=== PATIENT | female | born 1985 | race Caucasian/White ===

== ENCOUNTER 2023-08-02 12:47 | Emergency (ER) | payer BC ==
[~2023-08-02] VITALS: Ht 175.3 cm; Wt 85.7 kg
[2023-08-02] MEDS ORDERED: JUNEL 1/20 20 M1 TAB PO (13:08)
[2023-08-02] MEDS ORDERED: ZYRTEC ALLERGY10 MG PO (13:09)
[2023-08-02 14:13] LABS: BASO # 0.01 K/mm3 (0.02-0.10); EOS # 0.01 K/mm3 (0.04-0.40); EOS % 0.1 % (1.0-5.0); HEMATOCRIT 37.4 % (37.0-47.0); HEMOGLOBIN 12.8 g/dL (12.5-16.0); LYMPH# 1.57 K/mm3 (1.50-4.00); MEAN CELL VOLUME 93 fl (78-100); MEAN CORPUSCULAR HEMOGLOBIN 32 pg (27-31); MEAN CORPUSCULAR HGB CONC 34 g/dL (33-37); MEAN PLATELET VOLUME 10.5 fl (7.4-10.4); MONO # 0.29 K/mm3 (0.20-0.80); NEU # 5.77 K/mm3 (1.40-6.50); PLATELET COUNT 247 K/mm3 (130-400); RED BLOOD COUNT 4.02 M/mm3 (4.10-5.30); RED CELL DISTRIBUTION WIDTH 11.6 % (11.5-14.5); WHITE BLOOD COUNT 7.7 K/mm3 (4.8-10.8)
[2023-08-02 14:21] LABS: ALBUMIN 4.2 g/dL (3.5-5.0)
[2023-08-02 14:24] LABS: TOTAL PROTEIN 7.1 g/dL (6.4-8.3)
[2023-08-02 15:14] LABS: TOTAL BILIRUBIN 0.4 mg/dL (0.2-1.2)
[2023-08-02 16:09] VITALS: BP 126/86
== END 2023-08-02 16:10 | disposition home or self-care (01) ==
LOC: ED 12:47
PROVIDERS: Physician Assistant
DX: R51.9 Headache, unspecified (principal); R11.0 Nausea; R42 Dizziness and giddiness; B34.9 Viral infection, unspecified; Z20.822 Contact with and (suspected) exposure to COVID-19; Z28.310 Unvaccinated for COVID-19